=== PATIENT | male | born 1975 | race Caucasian/White ===

== ENCOUNTER 2016-10-14 15:54 | Emergency (ER) | payer BC ==
[~2016-10-14] VITALS: Ht 172.7 cm; Wt 90.9 kg
[2016-10-14 17:33] VITALS: BP 152/93
== END 2016-10-14 17:39 | disposition home or self-care (01) ==
LOC: ED 15:54
DX: S61.411A Laceration without foreign body of right hand, initial encounter (principal); W31.89XA Contact with other specified machinery, initial encounter; Y93.89 Activity, other specified; Y92.89 Other specified places as the place of occurrence of the external cause; Y99.0 Civilian activity done for income or pay; Z23 Encounter for immunization
CPT/HCPCS: 90715; A4550; A4649

== ENCOUNTER 2017-12-12 20:14 | Emergency (ER) | payer BC ==
[~2017-12-12] VITALS: Ht 175.3 cm; Wt 90.9 kg
[2017-12-12 21:44] VITALS: BP 140/92
== END 2017-12-12 21:44 | disposition home or self-care (01) ==
LOC: ED 20:14
DX: S00.83XA Contusion of other part of head, initial encounter (principal); S61.212A Laceration without foreign body of right middle finger without damage to nail, initial encounter; R51 Headache; V63.5XXA Driver of heavy transport vehicle injured in collision with car, pick-up truck or van in traffic accident, initial encounter; Y92.410 Unspecified street and highway as the place of occurrence of the external cause; I10 Essential (primary) hypertension

== ENCOUNTER → 2023-08-06 | Day surgery (SDC) | payer BC ==
[~2023-08-06] MED LIST: fentaNYL 100 MCG/2 ML VIAL ONE
== END | disposition home or self-care (01) ==
LOC: MSO 07:26
DX: Z12.11 Encounter for screening for malignant neoplasm of colon (principal); R19.5 Other fecal abnormalities; K63.89 Other specified diseases of intestine; E66.9 Obesity, unspecified
CPT/HCPCS: 00811; J2704; J3010; J7120